=== PATIENT | female | born 1945 | race Caucasian/White ===

== ENCOUNTER 2018-03-30 14:33 | Emergency (ER) | payer BC, OTHER ==
[~2018-03-30] VITALS: Ht 167.6 cm; Wt 103.6 kg
[2018-03-30] MEDS ORDERED: CETI10TA PO (14:43)
[2018-03-30] MEDS ORDERED: BUSP5TA PO (14:43)
[2018-03-30] MEDS ORDERED: ALBU17IN2 INH (14:43)
[2018-03-30] MEDS ORDERED: CITA20TA4 PO (14:43)
[2018-03-30] MEDS ORDERED: MONT10TA2 PO (14:43)
[2018-03-30] MEDS ORDERED: TYLE325T5 PO (14:54)
[2018-03-30] MEDS ORDERED: CYCLOBENZAPRINE 10 MG TAB PO ONE (15:15)
--- NOTE | 2018-03-30 15:58 | REP ---
Clinical: Trauma/fall . Comparison: None. Findings: The ventricles, sulci, and cisterns are normal in position and appearance. Beckham-white differentiation is maintained. No acute intracranial hemorrhage, mass/mass effect, pathology or trauma/injury. No evidence for acute infarction. No extra-axial fluid collection. Calvarium is intact. Paranasal sinuses and mastoid air cells are clear. Impression: Normal noncontrast head CT. No evidence for acute intracranial pathology or trauma/injury. Electronically Signed by Kelvin Santos MD 03/30/2018 03:50 P
--- NOTE | 2018-03-30 16:02 | REP ---
Clinical: Trauma/fall with neck pain. Technique: Axial noncontrast images from the skull base to the thoracic inlet with coronal and sagittal re-formations. Findings: Moderate multilevel degenerative disc osteophyte complexes are appreciated. Alignment is maintained. There is no acute fracture / compression injury or subluxation. Spinal canal is patent. Posterior elements and spinous processes are intact. Paravertebral soft tissues are normal. Impression: Moderate multilevel degenerative spondylosis. No acute fracture / compression injury or subluxation. Electronically Signed by Kelvin Santos MD 03/30/2018 03:53 P
--- NOTE | 2018-03-30 16:09 | REP ---
Clinical: Trauma/fall with back pain. Technique: Axial noncontrast images from the T12 through mid sacrum. Coronal and sagittal re-formations obtained. Findings: Moderate multilevel degenerative changes are appreciated. There is no evidence for acute fracture / compression injury or subluxation. Spinal canal is patent. Posterior elements demonstrate hypertrophic facet changes. Impression: Moderate multilevel degenerative changes. No acute fracture / compression injury or subluxation. Electronically Signed by Kelvin Santos MD 03/30/2018 04:00 P
[2018-03-30] MEDS ORDERED: CYCL5TAB PO (16:46)
[2018-03-30 17:00] VITALS: BP 139/79
== END 2018-03-30 17:45 | disposition home or self-care (01) ==
LOC: EDBD 14:33 → M ED 14:33
DX: S06.0X0A Concussion without loss of consciousness, initial encounter (principal); S00.03XA Contusion of scalp, initial encounter; M54.5 Low back pain; W00.0XXA Fall on same level due to ice and snow, initial encounter; Y92.096 Garden or yard of other non-institutional residence as the place of occurrence of the external cause; Y93.29 Activity, other involving ice and snow; F32.9 Major depressive disorder, single episode, unspecified; F41.9 Anxiety disorder, unspecified; Z79.899 Other long term (current) drug therapy

== ENCOUNTER → 2018-06-21 | Outpatient (CLI) | payer OTHER ==
[~2018-06-21] MED LIST: ALBU17IN2 INH; BUSP5TA PO; CETI10TA PO; CITA20TA6 PO; CYCL5TAB PO; MONT10TA2 PO; TYLE325T5 PO
--- NOTE | 2018-06-21 10:47 | REP ---
Right foot series: Four views. History: Pain in the right foot. Findings: There is some diffuse osteopenia. There is Achilles calcaneal spurring and some plantar calcaneal spurring. No other bony abnormality is appreciated. Impression: Mild diffuse osteopenia and heel spurs. No acute bony abnormality. Electronically Signed by Dinesh Enrique MD 06/21/2018 10:38 A
== END ==
LOC: M ADAMS 09:45
PROVIDERS: ATTEND Physician Assistant Medical
DX: M79.671 Pain in right foot (principal)

== ENCOUNTER → 2018-09-26 | Outpatient (REF) | payer OTHER | LOC: M LAB REF 16:38 | PROVIDERS: ATTEND Surgery | DX: D03.59 Melanoma in situ of other part of trunk (principal) ==

== ENCOUNTER → 2022-04-28 | Outpatient (REF) | payer OTHER ==
[~2022-04-28] MED LIST changes: -ALBU17IN2 INH; +ALBU6.7H6 INH; -MONT10TA2 PO; +MONT10TA97 PO
[2022-04-28 17:31] LABS: APPEARANCE, URINE CLEAR (CLEAR); BACTERIA, URINE AUTO NEGATIVE (NEGATIVE); BILIRUBIN, URINE AUTO NEGATIVE (NEGATIVE); BLOOD, URINE BLOOD 1+ (NEGATIVE); COLOR, URINE YELLOW (YELLOW); GLUCOSE, URINE (UA) AUTO NEGATIVE (NEGATIVE); KETONE, URINE AUTO NEGATIVE (NEGATIVE); LEUKOCYTE ESTERASE, URINE AUTO NEGATIVE (NEGATIVE); NITRITE, URINE AUTO NEGATIVE (NEGATIVE); PROTEIN, URINE AUTO NEGATIVE (NEGATIVE); RBC, URINE AUTO 1 /HPF (0-3); SPECIFIC GRAVITY URINE AUTO 1.013 (1.002-1.035); SQUAMOUS EPITHELIAL CELL UR AU 2 /HPF (0-6); UROBILINOGEN, URINE AUTO 0.2 mg/dL (0.0-2.0); WBC, URINE AUTO 3 /HPF (0-3)
== END ==
LOC: M SHH 17:09
PROVIDERS: ATTEND Family Medicine
DX: R35.0 Frequency of micturition (principal)